=== PATIENT | female | born 1975 | race African-American/Black ===

== ENCOUNTER → 2017-03-09 | Outpatient (CLI) | payer BC ==
[~2017-03-09] MED LIST: ACCUNEB SO1.25 MG/1; ACYCLOVIR; BACTRIM DS TAB1 EACH PO; CIPROFLOXACIN500 M1 PO; FLEXERIL PO; IBUPROFEN 600600 M1 PO; MEDROLDOSEPACK PO; MOBIC15 MG PO; ROBAXIN 750 MG750 M1 PO; SKELAXIN 800 M800 M1 PO; ULTRAM 50MG TAB50 MG PO; VENTOLIN HFA 1818 GM INH; VICODIN 5-5001 EACH PO
--- NOTE | ~2017-03-09 | SLE ---
[facility] [address] [place] [address] POLYSOMNOGRAPHY STUDY Name: NAYELI LINTON Room #: REG [facility]#: [id number] Admission: 03/09/17 Attend Phys: Laine Nichols MD Discharge: Date of : 75 Report #: [id number] THIS REPORT FOR: //name// CC: Laine Voss MD A 41-year-old, height 5 feet 4 inches, weight 197 pounds. The patient came with complaints of daytime somnolence. Usually goes to bed at 10, gets out of bed 7 or 10, does not feel refreshed. Positive snoring. COMMENTS: No significant arrhythmia noted. Total sleep time 372 minutes, sleep efficiency 87%. Sleep latency 11 minutes, REM latency 88 minutes. SLEEP STAGE: 1-6%, 2-67%, REM-27%. RESPIRATORY SUMMARY: Central apnea 2, mixed apnea 3, obstructive apnea 18, hypopnea 57. Apnea-hypopnea index 13 events per sleep hour. Non-REM AHI 4, REM AHI 37. Supine AHI 13, left lateral 14. Periodic limb movement with arousal index 0.6 events per sleep hour. Low oxygen saturation 53%, spending 5% of recording time less than 90%. IMPRESSION: 1. Obstructive sleep apnea/hypopnea, G47.33. 2. Periodic limb movement with arousal index of 0.6 events per sleep hour. 3. Snoring noted. 4. No significant arrhythmia noted. SUGGESTIONS: 1. In addition to specific therapy, the patient should be cautioned regarding driving or operating dangerous machinery unless fully alert. TSH and weight loss per Dr. Gutierrez and Dr. Voss. 2. The patient should be cautioned regarding the use of respiratory depressants. 3. Oral appliance or appropriate surgery may be considered with appropriate followup. 4. A CPAP titration night or a home auto-titrating CPAP is recommended depending on the patient's clinical circumstances. 5. If signs and symptoms not improved with therapy, further evaluation is [facility] [address] [place] [address] POLYSOMNOGRAPHY STUDY Name: NAYELI LINTON Room #: REG [facility] Garth#: [id number] Admission: 03/09/17 Attend Phys: Laine Nichols MD Discharge: Date of : 75 Report #: [id number] recommended. Please do not hesitate to contact me if I may be of further assistance. By: 46 30 Laine Nichols MD /nt
== END ==
LOC: SLEEPLAB 12:05
DX: G47.10 Hypersomnia, unspecified (principal)

== ENCOUNTER 2018-05-13 18:02 | Emergency (ER) | payer OTHER ==
[~2018-05-13] VITALS: Ht 162.6 cm; Wt 83.9 kg
[2018-05-13] MEDS ORDERED: ACCUNEB SO1.25 MG/1 INH (18:12)
[2018-05-13] MEDS ORDERED: NAPROSYN500 MG PO (20:18)
[2018-05-13] MEDS ORDERED: NORFLEX100 MG PO (20:18)
[2018-05-13 20:35] VITALS: BP 134/83
== END 2018-05-13 20:35 | disposition home or self-care (01) ==
LOC: ER 18:02
DX: S16.1XXA Strain of muscle, fascia and tendon at neck level, initial encounter (principal); S39.012A Strain of muscle, fascia and tendon of lower back, initial encounter; S29.012A Strain of muscle and tendon of back wall of thorax, initial encounter; J45.909 Unspecified asthma, uncomplicated; V49.09XA Driver injured in collision with other motor vehicles in nontraffic accident, initial encounter; Y93.89 Activity, other specified; Y92.410 Unspecified street and highway as the place of occurrence of the external cause; Y99.8 Other external cause status